=== PATIENT | female | born 1955 | race Two or more races ===

== ENCOUNTER 2021-08-05 23:05 | Emergency (ER) | payer BC, MEDICARE ==
[~2021-08-05] VITALS: Ht 167.6 cm; Wt 81.6 kg
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
--- NOTE | 2021-08-05 23:51 | NUR ---
PAGED DR MENDES, ORTHO, PER DR COOPER'S ORDER
[2021-08-06] MEDS ORDERED: MORPHINE SULFATE INJ 2 MG/ML DISP.SYRIN IM ONE
[2021-08-06] MEDS ORDERED: ONDANSETRON 4 MG TAB.RAPDIS PO ONE
--- NOTE | 2021-08-06 00:13 | NUR ---
RE PAGED DR MENDES
--- NOTE | 2021-08-06 00:42 | NUR ---
RE PAGED DR MENDES
[2021-08-06] MEDS ORDERED: MORPHINE SULFATE INJ 4 MG/ML DISP.SYRIN ONE ×2 (00:43→00:44)
[2021-08-06] MEDS ORDERED: ONDANSETRON 4 MG TAB.RAPDIS ONE (00:43)
--- NOTE | 2021-08-06 01:16 | NUR ---
RE PAGED DR MENDES
[2021-08-06] MEDS ORDERED: TRAM50TA2 PO (02:08)
[2021-08-06] MEDS ORDERED: HYDROCODONE/APAP 5/325MG TABLET ONE (02:18)
[2021-08-06] MEDS ORDERED: HYDROCODONE/APAP 5/325MG TABLET PO ONE (02:30)
--- NOTE | 2021-08-06 02:31 | NUR ---
Patient discharged to home in stable condition. Written and verbal after care instructions given. Patient verbalizes understanding of instruction.
[2021-08-06 02:58] VITALS: BP 139/70
== END 2021-08-06 02:31 | disposition home or self-care (01) ==
LOC: ER 23:08
DX: S42.291A Other displaced fracture of upper end of right humerus, initial encounter for closed fracture (principal); I10 Essential (primary) hypertension; E11.9 Type 2 diabetes mellitus without complications; Z79.899 Other long term (current) drug therapy; W01.0XXA Fall on same level from slipping, tripping and stumbling without subsequent striking against object, initial encounter; Y93.89 Activity, other specified; Y92.89 Other specified places as the place of occurrence of the external cause; Y99.8 Other external cause status
CPT/HCPCS: 29105; 73020; 73060; 96372; 99284; J2270 ×2; Q0162